=== PATIENT | female | born 1970 | race Caucasian/White ===

== ENCOUNTER 2017-06-21 17:13 | Emergency (ER) | payer OTHER ==
[~2017-06-21] VITALS: Ht 167.6 cm; Wt 79.4 kg
[~2017-06-21 17:13] MED LIST: ACETAMINOPHEN-1 EAC1 PO; FLEXERIL PO; HYDROCODONE-AP1 EAC6 PO; IBUPROFEN 800800 M1 PO; IRON325 PO; LEVOTHYROXIN0.025 MG PO; LEVOTHYROXINE 0.1 MG PO; MOBIC15 MG PO; MOBIC7.5 MG PO; MOTION RELIEF25 MG PO; PHENERGAN 25 MG25 M1 PO; PREDNISONE50 MG PO; PROPRANOLOL 1010 MG PO; TESSALON PERLE100 MG PO; VALIUM5 MG PO; VENLAFAXIN75 MG/1 T1 PO; ZOFRAN ODT4 MG PO
[2017-06-21 17:49] LABS: ABSOLUTE EOSINOPHILS 0.1 thou/uL (0.0-0.7); ABSOLUTE LYMPHOCYTES 1.2 thou/uL (0.8-5.3); ABSOLUTE MONOCYTES 0.3 thou/uL (0.0-1.2); ABSOLUTE NEUTROPHILS 4.1 thou/uL (1.6-8.1); BASOPHILS 0.4 %; EOSINOPHILS 2.4 %; HEMATOCRIT 41.8 % (37.0-47.0); HEMOGLOBIN 13.1 gm/dL (12.0-15.0); MCHC 31.3 g/dL (28.0-37.0); MONOCYTES 5.4 %; MPV 8.8 fl. (7.2-11.1); NUCLEATED RBCS 0 /100WBC; PLATELET COUNT* 190 thou/uL (150-400); POLYS 70.8 %; RBC 5.04 mil/uL (4.20-5.00); RDW-CV 15.1 % (10.5-14.5); WBC 5.9 thou/uL (4.0-11.0)
[2017-06-21 18:01] LABS: CALCIUM 9.7 mg/dL (8.5-10.1); CREATININE 1.1 mg/dL (0.6-1.3); POTASSIUM 3.8 mmol/L (3.5-5.1)
[2017-06-21 18:06] LABS: ALBUMIN 4.2 g/dL (3.4-5.0); TOTAL BILIRUBIN 0.6 mg/dL (<0.1-1.0); TOTAL PROTEIN 7.7 g/dL (6.4-8.2)
[2017-06-21] MEDS ORDERED: ZOFRAN ODT4 MG PO (18:41)
[2017-06-21 19:05] VITALS: BP 140/94
== END 2017-06-21 19:05 | disposition home or self-care (01) ==
LOC: M.ERS 17:13
PROVIDERS: Physician Assistant
DX: B34.9 Viral infection, unspecified (principal); E03.9 Hypothyroidism, unspecified; Z90.710 Acquired absence of both cervix and uterus; Z86.2 Personal history of diseases of the blood and blood-forming organs and certain disorders involving the immune mechanism

== ENCOUNTER 2018-07-23 08:48 | Emergency (ER) | payer OTHER ==
[~2018-07-23] VITALS: Ht 167.6 cm; Wt 76.2 kg
[2018-07-23 10:53] VITALS: BP 130/88
== END 2018-07-23 10:57 | disposition home or self-care (01) ==
LOC: M.ERS 08:48
DX: S01.01XA Laceration without foreign body of scalp, initial encounter (principal); E03.9 Hypothyroidism, unspecified; Z90.710 Acquired absence of both cervix and uterus; Z86.2 Personal history of diseases of the blood and blood-forming organs and certain disorders involving the immune mechanism; W22.8XXA Striking against or struck by other objects, initial encounter; Y92.89 Other specified places as the place of occurrence of the external cause; Y93.89 Activity, other specified; Y99.8 Other external cause status